=== PATIENT | male | born 1980 | race Caucasian/White ===

== ENCOUNTER → 2021-04-27 | Outpatient (CLI) | payer BC ==
--- NOTE | 2021-04-27 18:11 | XR ---
EXAMINATION TYPE: XR clavicle LT DATE OF EXAM: 04/27/2021 COMPARISON: NONE HISTORY: 41-year-old male S420 02A, clavicular pain TECHNIQUE: 2 views FINDINGS: AC joint is intact. Subacromial space is preserved. No clavicular fracture identified. A couple small bone islands at the left humeral head. IMPRESSION: No acute osseous abnormality seen. If any instability at the sternoclavicular joint, consider CT to f urther assess.
== END | disposition home or self-care (01) ==
LOC: RADXRYALE 11:07
PROVIDERS: ATTEND Internal Medicine
DX: M25.512 Pain in left shoulder (principal)

== ENCOUNTER 2023-03-11 18:54 | Observation (INO) | payer BC ==
[2023-03-11] MEDS ORDERED: ASPIRIN 81 MG PO STA (19:15)
[2023-03-11] MEDS ORDERED: NITROGLYCERIN SL TABS 0.4 MG TAB SUBLINGUAL STA ×3 (19:15)
--- NOTE | 2023-03-11 19:17 | ED ---
General Adult HPI - General Chief complaint: Chest Pain Stated complaint: chest pain Time Seen by Provider: 03/11/23 19:11 Source: patient, RN notes reviewed Mode of arrival: ambulatory Limitations: no limitations - History of Present Illness Initial comments: Patient is a pleasant 42-year-old male presenting to the emergency department with concerns with chest discomfort. Onset of symptoms was around noon. Symptoms have worsened the past couple hours and is now rated 6/10. Discomfort feels a pressure without radiation. Patient does have associated dyspnea. No nausea. No diaphoresis. No history of similar symptoms previously. - Related Data Allergies Allergy/AdvReac Type Severity Reaction Status Date / Time No Known Allergies Allergy Verified 03/11/23 19:06 Review of Systems ROS Statement: Those systems with pertinent positive or pertinent negative responses have been documented in the HPI. ROS Other: All systems not noted in ROS Statement are negative. Constitutional: Denies: fever Eyes: Denies: eye pain ENT: Denies: ear pain Respiratory: Reports: as per HPI. Denies: cough Cardiovascular: Reports: as per HPI, chest pain Endocrine: Denies: fatigue Gastrointestinal: Denies: abdominal pain Genitourinary: Denies: dysuria Musculoskeletal: Denies: back pain Skin: Denies: rash Past Medical History Past Medical History: No Reported History History of Any Multi-Drug Resistant Organisms: None Reported Past Surgical History: Orthopedic Surgery Additional Past Surgical History / Comment(s): lisa knee, shoulder, vasectomy Past Psychological History: No Psychological Hx Reported Smoking Status: Never smoker Past Alcohol Use History: Rare Past Drug Use History: Marijuana General Exam Limitations: no limitations General appearance: alert, in no apparent distress Head exam: Present: normocephalic Eye exam: Present: normal appearance Neck exam: Present: normal inspection Respiratory exam: Present: normal lung sounds bilaterally. Absent: chest wall tenderness Cardiovascular Exam: Present: regular rate, normal rhythm Expanded Peripheral pulses: 2+: Radial (R), Radial (L), Posterior Tibialis (R), Posterior Tibialis (L) GI/Abdominal exam: Present: soft. Absent: tenderness Extremities exam: Present: normal inspection. Absent: pedal edema, calf tenderness Neurological exam: Present: alert Psychiatric exam: Present: normal affect, normal mood Skin exam: Present: normal color Course Vital Signs 06/23/23 06/23/23 06/23/23 19:03 19:10 19:29 Temperature 98.6 F Pulse Rate 79 77 81 Respiratory 20 18 18 Rate Blood Pressure 142/96 156/108 136/92 O2 Sat by Pulse 98 97 95 Oximetry EKG Findings - EKG Results: EKG: interpreted by CHELSIED (([place] left), sinus rhythm, normal QRS, normal ST/T Medical Decision Making - Medical Decision Making Was pt. sent in by a medical professional or institution (, RAUDEL, MINING MACHINERY ASSEMBLER, urgent care, hospital, or care home...) When possible be specific @ -No Did you speak to anyone other than the patient for history (EMS, parent, family, police, friend...)? What history was obtained from this source @ -No Did you review nursing and triage notes (agree or disagree)? Why? @ -I reviewed and agree with nursing and triage notes Were old charts reviewed (outside hosp., previous admission, EMS record, old EKG, old radiological studies, urgent care reports/EKG's, care home records)? Report findings @ -No old charts were reviewed Differential Diagnosis (chest pain, altered mental status, abdominal pain women, abdominal pain men, vaginal bleeding, weakness, fever, dyspnea, syncope, headache, dizziness, GI bleed, back pain, seizure, CVA, palpatations, mental health)? @ -Differential Chest Pain: Stable Angina, Unstable Angina, STEMI, NSTEMI Aortic Dissection, Pneumothorax, Musculoskeletal, Esophageal Spasm GERD, Cholecystitis, Pancreatitis, Zoster, this is not meant to be an all-inclusive list. EKG interpreted by me (3pts min.). @ -As above X-rays interpreted by me (1pt min.). @ -Chest x-ray shows no acute process CT interpreted by me (1pt min.). @ -None done U/S interpreted by me (1pt. min.). @ -None done What testing was considered but not performed or refused? (CT, X-rays, U/S, labs)? Why? @ -None What meds were considered but not given or refused? Why? @ -None Did you discuss the management of the patient with other professionals (professionals i.e. RAUDEL Atkinson, MINING MACHINERY ASSEMBLER, lab, RT, psych nurse, social welfare clerk, traverse rod assembler, teacher, occupational medicine officer, showcase trimmer)? Give summary @ -Case discussed with practitioner Sharon Miller who will admit covering Dr. steele, who admits for Dr. Akins Was smoking cessation discussed for >3mins.? @ -No Was critical care preformed (if so, how long)? @ -No Were there social determinants of health that impacted care today? How? (Homelessness, low income, unemployed, alcoholism, drug addiction, transportation, low edu. Level, literacy, decrease access to med. care, longterm, re hab)? @ -No Was there de-escalation of care discussed even if they declined (Discuss DNR or withdrawal of care, Hospice)? DNR status @ -No What co-morbidities impacted this encounter? (DM, HTN, Smoking, COPD, CAD, Cancer, CVA, ARF, Chemo, Hep., AIDS, mental health diagnosis, sleep apnea, morbid obesity)? @ -None Was patient admitted / discharged? Hospital course, mention meds given and route, prescriptions, significant lab abnormalities, going to OR and other pertinent info. @ -Patient reevaluated and significant improvement following nitroglycerin. Patient will be admitted for further testing and cardiology evaluation Undiagnosed new problem with uncertain prognosis? @ -No Drug Therapy requiring intensive monitoring for toxicity (Heparin, Nitro, Insulin, Cardizem)? @ -No Were any procedures done? @ -No Diagnosis/symptom? @ -Chest pain Acute, or Chronic, or Acute on Chronic? @ -Acute Uncomplicated (without systemic symptoms) or Complicated (systemic symptoms)? @ -default Side effects of treatment? @ -No Exacerbation, Progression, or Severe Exacerbation? @ -No Poses a threat to life or bodily function? How? (Chest pain, [place], [place], pneumonia, PE, COPD, DKA, ARF, appy, cholecystitis, CVA, Diverticulitis, Homicidal, Suicidal, threat to staff... and all critical care pts) @ -No - Lab Data Result diagrams: 03/11/23 19:19 03/11/23 19:19 Lab Results 03/11/23 03/11/23 03/11/23 Range/Units 19:19 19:19 19:19 WBC 10.2 (3.8-10.6) k/uL RBC 5.25 (4.30-5.90) m/uL Hgb 15.8 (13.0-17.5) gm/dL Hct 46.5 (39.0-53.0) % MCV 88.5 (80.0-100.0) fL MCH 30.1 (25.0-35.0) pg MCHC 34.0 (31.0-37.0) g/dL RDW 13.1 (11.5-15.5) % Plt Count 361 (150-450) k/uL MPV 7.2 Neutrophils % 68 % Lymphocytes % 23 % Monocytes % 5 % Eosinophils % 2 % Basophils % 1 % Neutrophils # 7.0 (1.3-7.7) k/uL Lymphocytes # 2.3 (1.0-4.8) k/uL Monocytes # 0.5 (0-1.0) k/uL Eosinophils # 0.2 (0-0.7) k/uL Basophils # 0.1 (0-0.2) k/uL PT 9.7 (9.0-12.0) sec INR 0.9 (<1.2) APTT 22.8 (22.0-30.0) sec D-Dimer 0.30 (<0.60) mg/L FEU Sodium 141 (137-145) mmol/L Potassium 4.2 (3.5-5.1) mmol/L Chloride 105 (98-107) mmol/L Carbon Dioxide 24 (22-30) mmol/L Anion Gap 12 mmol/L BUN 13 (9-20) mg/dL Creatinine 0.90 (0.66-1.25) mg/dL Est GFR (CKD-EPI)AfAm >90 (>60 ml/min/1.73 sqM) Est GFR (CKD-EPI)NonAf >90 (>60 ml/min/1.73 sqM) Glucose 112 H (74-99) mg/dL Calcium 9.7 (8.4-10.2) mg/dL Magnesium 1.9 (1.6-2.3) mg/dL Total Bilirubin 0.3 (0.2-1.3) mg/dL AST 29 (17-59) U/L ALT 42 (4-49) U/L Alkaline Phosphatase 92 (38-126) U/L Troponin I (0.000-0.034) ng/mL Total Protein 7.8 (6.3-8.2) g/dL Albumin 4.4 (3.5-5.0) g/dL Amylase 69 (30-110) U/L Lipase 146 (23-300) U/L 03/11/23 Range/Units 19:19 WBC (3.8-10.6) k/uL RBC (4.30-5.90) m/uL Hgb (13.0-17.5) gm/dL Hct (39.0-53.0) % MCV (80.0-100.0) fL MCH (25.0-35.0) pg MCHC (31.0-37.0) g/dL RDW (11.5-15.5) % Plt Count (150-450) k/uL MPV Neutrophils % % Lymphocytes % % Monocytes % % Eosinophils % % Basophils % % Neutrophils # (1.3-7.7) k/uL Lymphocytes # (1.0-4.8) k/uL Monocytes # (0-1.0) k/uL Eosinophils # (0-0.7) k/uL Basophils # (0-0.2) k/uL PT (9.0-12.0) sec INR (<1.2) APTT (22.0-30.0) sec D-Dimer (<0.60) mg/L FEU Sodium (137-145) mmol/L Potassium (3.5-5.1) mmol/L Chloride (98-107) mmol/L Carbon Dioxide (22-30) mmol/L Anion Gap mmol/L BUN (9-20) mg/dL Creatinine (0.66-1.25) mg/dL Est GFR (CKD-EPI)AfAm (>60 ml/min/1.73 sqM) Est GFR (CKD-EPI)NonAf (>60 ml/min/1.73 sqM) Glucose (74-99) mg/dL Calcium (8.4-10.2) mg/dL Magnesium (1.6-2.3) mg/dL Total Bilirubin (0.2-1.3) mg/dL AST (17-59) U/L ALT (4-49) U/L Alkaline Phosphatase (38-126) U/L Troponin I <0.012 (0.000-0.034) ng/mL Total Protein (6.3-8.2) g/dL Albumin (3.5-5.0) g/dL Amylase (30-110) U/L Lipase (23-300) U/L Disposition Clinical Impression: Chest pain Disposition: ADMITTED IP TO THIS HOSP Is patient prescribed a controlled substance at d/c from ED?: No Referrals: Jyothi Akins MD [Primary Care Provider] - 1-2 days Time of Disposition: 20:03
[2023-03-11 19:29] LABS: Basophils # (A) 0.1 k/uL (0-0.2); Basophils % (A) 1 %; Eosinophils # (A) 0.2 k/uL (0-0.7); Eosinophils % (A) 2 %; HCT 46.5 % (39.0-53.0); HGB 15.8 gm/dL (13.0-17.5); Lymphocytes # (A) 2.3 k/uL (1.0-4.8); Lymphocytes % (A) 23 %; MCH 30.1 pg (25.0-35.0); MCV 88.5 fL (80.0-100.0); Mean Platelet Volume 7.2; Monocytes # (A) 0.5 k/uL (0-1.0); Monocytes % (A) 5 %; Neutrophils % (A) 68 %; Platelet Count 361 k/uL (150-450); RBC 5.25 m/uL (4.30-5.90); RDW 13.1 % (11.5-15.5); WBC 10.2 k/uL (3.8-10.6)
[2023-03-11 19:46] LABS: ALT 42 U/L (4-49); AST 29 U/L (17-59); African American GFR (CKD) >90 (>60 ml/min/1.73 sqM); Albumin 4.4 g/dL (3.5-5.0); Alkaline Phosphatase 92 U/L (38-126); Amylase 69 U/L (30-110); Anion Gap 12 mmol/L; Blood Urea Nitrogen 13 mg/dL (9-20); Calcium 9.7 mg/dL (8.4-10.2); Carbon Dioxide 24 mmol/L (22-30); Chloride 105 mmol/L (98-107); Glucose 112 mg/dL (74-99); INR 0.9 (<1.2); Lipase 146 U/L (23-300); Magnesium 1.9 mg/dL (1.6-2.3); Non-African American GFR(CKD) >90 (>60 ml/min/1.73 sqM); Partial Thromboplastin Time 22.8 sec (22.0-30.0); Potassium 4.2 mmol/L (3.5-5.1); Prothrombin Time 9.7 sec (9.0-12.0); Sodium 141 mmol/L (137-145); Total Bilirubin 0.3 mg/dL (0.2-1.3); Total Protein 7.8 g/dL (6.3-8.2)
--- NOTE | 2023-03-11 19:58 | XR ---
EXAMINATION TYPE: XR chest 2V DATE OF EXAM: 03/11/2023 7:37 PM COMPARISON: None TECHNIQUE: XR chest 2V Frontal and lateral views of the chest. CLINICAL INDICATION:Male, 42 years old with history of Chest Pain; FINDINGS: Lungs/Pleura: There is no evidence of pleural effusion, focal consolidation, or pneumothorax. Pulmonary vascularity: Unremarkable. Heart/mediastinum: Cardiomediastinal silhouette is unremarkable. Musculoskeletal: No acute osseous pathology. IMPRESSION: No acute cardiopulmonary disease/process.
[2023-03-11] MEDS ORDERED: NITROGLYCERIN SL TABS 0.4 MG TAB SUBLINGUAL PRN (20:03)
[2023-03-11] MEDS: NITROGLYCERIN OINT 1 INCH/GM PACKET TOPICAL SCH (23:26)
[2023-03-12 06:03] VITALS: BP 143/82; PULSE 73; RESP 15; TEMP 98
[2023-03-12] MEDS: NITROGLYCERIN OINT 1 INCH/GM PACKET TOPICAL SCH (06:26)
[2023-03-12] MEDS ORDERED: ASPIRIN 325 MG TAB PO SCH (09:00)
--- NOTE | 2023-03-12 11:27 | P.CRDCN ---
History of Present Illness Consult date: 03/12/23 Consult reason: chest pain History of present illness: Update Chest discomfort, atypical Dyslipidemia with possible hypertriglyceridemia Twelve-lead EKG shows QRS fractionation V3-V6 and in the inferior leads and no ST segment abnormalities Normal cardiac enzymes Plan Outpatient evaluation of cardiac structure and function/advanced imaging Outpatient stress testing Will follow up in 1-2 weeks in the office, appointment made This is Michael Armijo NP, I'm dictating on behalf of Dr. Giraldo's H&P and A&P The patient was interviewed and examined. HPI: Patient is a pleasant 42-year-old male who presented to the hospital with chest pain. Patient reports that at noon yesterday he started having a stabbing chest pain in the upper center of his sternal area, which continued to progress throughout the day. He said that later in the day, the pain started radiating into his left shoulder, and down into his ring and pinky finger with some numbness and tingling. Patient does report that this pain was reproducible on palpation and with movement. Due to the concerning nature of the pain, the patient presented to the emergency department for evaluation. In the emergency department the patient had an EKG completed, which does show QRS fractionation with a narrow QRS in the inferior and lateral leads, but otherwise no evidence of this NC. Labs were noncontributory. The patient was subsequently admitted to cardiology service for evaluation of the chest pain. Patient has a pertinent past medical history that includes high cholesterol. This morning the patient reports that the pain remains, especially with palpation to the upper part of the sternum. He otherwise denies shortness of breath, heart palpitations, diaphoresis, dizziness, or near syncope. ROS: [No fever, chills, or rigors] [no cough, phlegm, or expectoration] [no nausea, vomiting, or diarrhea] [no hematuria, dysuria] [Pain to the mid upper chest with movement and palpation] [no strokes or seizures] [no skin lesions] EXAMINATION: GENERAL: Well-appearing, well-nourished and in no acute distress. NECK: Supple without JVD or thyromegaly. LUNGS: Breath sounds clear to auscultation bilaterally. Respiration equal and unlabored. No wheezes, rales or rhonchi. HEART: Regular rate and rhythm without murmurs, rubs or gallops. S1 and S2 heard. EXTREMITIES: Normal range of motion, no edema. No clubbing or cyanosis. Peripheral pulses intact and strong. REVIEW OF LABS, ECG & MEDICAL DATA: LABS: White count 10.2, hemoglobin 15.8, platelets 361, sodium 141, potassium 4.2, B1 13, creatinine 0.90, calcium 9.7, magnesium 1.9, troponin-less than 0.0123 EKG: Normal sinus rhythm, with QRS fractionation with narrow QRS complex in the inferior and lateral leads IMAGING: Chest x-ray dated 03/11/2023 demonstrates no acute cardiopulmonary disease/process. VITALS: Temp 98.0, pulse 73, respirations 15, blood pressure 143/82, O2 saturation 96% on room air IMPRESSION: 1. Chest pain, atypical 2. Hyperlipidemia PLAN: From a cardiology standpoint the patient may be discharged Patient should follow-up with Dr. Giraldo in 1 to 2 weeks Thank you for the consult and allowing us to participate in the care of this patient. Past Medical History Past Medical History: No Reported History History of Any Multi-Drug Resistant Organisms: None Reported Past Surgical History: Hernia Repair, Orthopedic Surgery Additional Past Surgical History / Comment(s): 2 left knee arthroscopies, right shoulder arthroscopy, vasectomy. Double hernia repair. Past Anesthesia/Blood Transfusion Reactions: Postoperative Nausea & Vomiting (PONV) Past Psychological History: No Psychological Hx Reported Smoking Status: Never smoker Past Alcohol Use History: Rare Past Drug Use History: Marijuana Medications and Allergies Home Medications Medication Instructions Recorded Confirmed Type No Known Home Medications 03/11/23 03/11/23 History Allergies Allergy/AdvReac Type Severity Reaction Status Date / Time No Known Allergies Allergy Verified 03/11/23 20:06 Physical Exam Vitals: Vital Signs Temp Pulse Pulse Resp BP BP Pulse Ox 03/12/23 06:01 98.0 F 73 15 143/82 96 03/12/23 02:09 97 12 127/76 97 03/11/23 23:14 98 F 74 18 129/89 100 03/11/23 20:22 70 18 131/90 96 03/11/23 19:29 81 18 136/92 95 03/11/23 19:10 77 18 156/108 97 03/11/23 19:03 98.6 F 79 20 142/96 98 Intake and Output 03/11/23 03/12/2303/12/23 22:59 06:59 14:59 Intake Total 0 Balance 0 Intake: Oral 0 Other: Voiding Method Toilet Weight 108.862 kg 108.862 kg Results 03/11/23 19:19 03/11/23 19:19 Cardiac Enzymes 03/11/23 03/11/23 03/11/23 Range/Units 19:19 19:19 22:13 AST 29 (17-59) U/L Troponin I <0.012 <0.012 (0.000-0.034) ng/mL 03/12/23 Range/Units 02:01 AST (17-59) U/L Troponin I <0.012 (0.000-0.034) ng/mL Coagulation 03/11/23 Range/Units 19:19 PT 9.7 (9.0-12.0) sec APTT 22.8 (22.0-30.0) sec CBC 03/11/23 Range/Units 19:19 WBC 10.2 (3.8-10.6) k/uL RBC 5.25 (4.30-5.90) m/uL Hgb 15.8 (13.0-17.5) gm/dL Hct 46.5 (39.0-53.0) % Plt Count 361 (150-450) k/uL Comprehensive Metabolic Panel 03/11/23 Range/Units 19:19 Sodium 141 (137-145) mmol/L Potassium 4.2 (3.5-5.1) mmol/L Chloride 105 (98-107) mmol/L Carbon Dioxide 24 (22-30) mmol/L BUN 13 (9-20) mg/dL Creatinine 0.90 (0.66-1.25) mg/dL Glucose 112 H (74-99) mg/dL Calcium 9.7 (8.4-10.2) mg/dL AST 29 (17-59) U/L ALT 42 (4-49) U/L Alkaline Phosphatase 92 (38-126) U/L Total Protein 7.8 (6.3-8.2) g/dL Albumin 4.4 (3.5-5.0) g/dL Current Medications Generic Name Dose Route Start Last Admin Trade Name Freq PRN Reason Stop Dose Admin Aspirin 325 mg 03/12/23 09:00 03/12/23 08:49 Aspirin 325 Mg Tab PO 325 mg DAILY JAROD Administration Nitroglycerin 0.4 mg 03/11/23 20:03 Nitroglycerin Sl Tabs 0.4 Mg Tab SUBLINGUAL Q5M PRN Chest Pain Intake and Output 03/11/23 03/12/23 03/12/23 22:59 06:59 14:59 Intake Total 0 Balance 0 Intake: Oral 0 Other: Voiding Method Toilet Weight 108.862 kg 108.862 kg 03/11/23 19:19 03/11/23 19:19
[2023-03-12 12:19] LABS: Chol/HDL Ratio 5.96 Ratio; LDL Cholesterol,Calculated 150.6 mg/dL (0.0-131.0)
--- NOTE | 2023-03-12 12:20 | P.HPIM ---
History of Present Illness This is a pleasant 42 years old male with no significant past medical history Presents because of chest pain of one-day duration, 3/10 severity,naggy in character, his pain is significantly improved 1/10 now, with mild tenderness in the chest wall. No relieving or precipitating factors No dyspnea or coughing. No GI or urinary or neurological complaints Denies smoking. Alcohol occasional Vitals stable As unremarkable CBC, INR, BMP, liver enzymes Troponin 3 are negative D-dimer is -0.30 Chest x-ray: No acute process EKG showing sinus rhythm at [address]-T changes Patient was started on aspirin and admitted with cardiology consult Review of Systems Review of systems CONSTITUTIONAL: No fever, no malaise, no fatigue. HEENT: No recent visual problems or hearing problems. Denied any sore throat. CARDIOVASCULAR: No orthopnea, PND, no palpitations, no syncope. PULMONARY: No shortness of breath, no cough, no hemoptysis. GASTROINTESTINAL: No diarrhea, no nausea, no vomiting, no abdominal pain. Normoactive bowel sounds. NEUROLOGICAL: No headaches, no weakness, no numbness. HEMATOLOGICAL: Denies any bleeding or petechiae. GENITOURINARY: Denies any burning micturition, frequency, or urgency. MUSCULOSKELETAL/RHEUMATOLOGICAL: Denies any joint pain, swelling, or any muscle pain. ENDOCRINE: Denies any polyuria or polydipsia. Past Medical History Past Medical History: No Reported History History of Any Multi-Drug Resistant Organisms: None Reported Past Surgical History: Hernia Repair, Orthopedic Surgery Additional Past Surgical History / Comment(s): 2 left knee arthroscopies, right shoulder arthroscopy, vasectomy. Double hernia repair. Past Anesthesia/Blood Transfusion Reactions: Postoperative Nausea & Vomiting (PONV) Past Psychological History: No Psychological Hx Reported Smoking Status: Never smoker Past Alcohol Use History: Rare Past Drug Use History: Marijuana Medications and Allergies Home Medications Medication Instructions Recorded Confirmed Type No Known Home Medications 03/11/23 03/11/23 History Allergies Allergy/AdvReac Type Severity Reaction Status Date / Time No Known Allergies Allergy Verified 03/11/23 20:06 Physical Exam Vitals: Vital Signs Temp Pulse Pulse Resp BP BP Pulse Ox 03/12/23 06:01 98.0 F 73 15 143/82 96 03/12/23 02:09 97 12 127/76 97 03/11/23 23:14 98 F 74 18 129/89 100 03/11/23 20:22 70 18 131/90 96 03/11/23 19:29 81 18 136/92 95 03/11/23 19:10 77 18 156/108 97 03/11/23 19:03 98.6 F 79 20 142/96 98 Intake and Output 03/11/23 03/12/23 03/12/23 22:59 06:59 14:59 Intake Total 0 Balance 0 Intake: Oral 0 Other: Voiding Method Toilet Weight 108.862 kg 108.862 kg GENERAL: The patient is alert and oriented x3, not in any acute distress. Well developed, well nourished. HEENT: Pupils are round and equally reacting to light. EOMI. No scleral icterus. No conjunctival pallor. Normocephalic, atraumatic. No pharyngeal erythema. No thyromegaly. CARDIOVASCULAR: S1 and S2 present. No murmurs, rubs, or gallops. PULMONARY: Chest is clear to auscultation, no wheezing , no crackles. ABDOMEN: Soft, nontender, nondistended, normoactive bowel sounds. No palpable organomegaly. MUSCULOSKELETAL: No joint swelling or deformity. EXTREMITIES: No cyanosis, clubbing, or pedal edema. NEUROLOGICAL: Gross neurological examination did not reveal any focal deficits. SKIN: No rashes. no petechiae. Results CBC & Chem 7: 03/11/23 19:19 03/11/23 19:19 Labs: Abnormal Lab Results - Last 24 Hours (Table) 03/11/23 Range/Units 19:19 Glucose 112 H (74-99) mg/dL Thrombosis Risk Factor Assmnt - Choose All That Apply Each Factor Represents 1 point: Obesity (BMI >25) Thrombosis Risk Factor Assessment Total Risk Factor Score: 1 Thrombosis Risk Factor Assessment Level: Low Risk Assessment and Plan Assessment: Chest pain, rule out cardiac causes. With negative d-dimer Obesity with BMI of 33.5 Plan: Continue with aspirin Cardiologic consult Labs and medication were reviewed.. Continue same treatment. Continue with symptomatic treatment. Monitor labs and vitals. DVT and GI prophylaxis. Further recommendations as per clinical course of the patient DVT prophylaxis: Subcutaneous heparin GI Prophylaxis: Pepcid Prognosis is guarded
== END 2023-03-12 12:40 | disposition home or self-care (01) ==
LOC: EC 18:54 → 6NMEDSUR 20:04
PROVIDERS: ADMIT Internal Medicine; ATTEND Internal Medicine
DX: R07.89 Other chest pain (principal); R06.00 Dyspnea, unspecified; E78.5 Hyperlipidemia, unspecified; E66.9 Obesity, unspecified; Z68.33 Body mass index [BMI] 33.0-33.9, adult; Z98.52 Vasectomy status; Z98.890 Other specified postprocedural states
CPT/HCPCS: 99285; 36415; 93005; 85379; 80061; 80053; 82150; 83690; 83735; 84484 ×2; 85025; 85610; 85730; 71046; G0378 ×2